=== PATIENT | female | born 1995 | race Caucasian/White ===

== ENCOUNTER 2016-09-11 20:32 | Emergency (ER) | payer SELFPAY ==
--- NOTE | ~2016-09-11 | ER ---
PATIENT'S NAME: KAEL [facility] AGE: 21 Y [address] ROOM: [place] [address] LOCATION: [facility] ADMIT DATE: 09/11/2016 ER/Outpatient Report DISCHARGE DATE: 09/11/2016 FAMILY PHYSICIAN: PHYSICIAN, NO ATTENDING PHYSICIAN: Paul Jennings Admission date and time documented on the medical record. I saw the patient at 2045 hours. CHIEF COMPLAINT: Shortness of breath, exacerbation of asthma. HISTORY OF PRESENT ILLNESS: This patient is a 21-year-old female, who has been ill for about 10 days with respiratory infection and problems with her asthma. Worsened today. She has taken her albuterol inhaler every hour. She has a dry, nonproductive cough, short of breath, wheezing, tight chest. No fever, chills, or sweats. No headache, eyes, ears, nose, throat, neck, or spine pain. No fall or trauma. No lightheadedness, dizziness, syncope, or near syncope. No abdominal pain, nausea, vomiting, diarrhea. No urinary frequency, urgency, or dysuria. No joint or muscle swelling, redness, or pain. No skin eruptions or rash. No history of neuro changes, psych issues, or endocrine problems. HOME MEDICATIONS: See attached medication list. ALLERGIES: NICKEL. SOCIAL HISTORY: The patient does smoke cigarettes, nondrinker. SIGNIFICANT PAST MEDICAL HISTORY: Asthma, tobacco abuse. OPERATIONS: Vaginal surgery. ROS: All systems reviewed by me are negative with exception of those discussed in the history of present illness. PHYSICAL EXAMINATION: VITAL SIGNS: Temperature 98.2, tympanic; pulse 131, regular; respirations 20; blood pressure 131/101; O2 saturation on 1 L of oxygen per nasal cannula is PATIENT'S NAME: SCRUGGS [facility] AGE: 21 Y [address] ROOM: [place] [address] LOCATION: [facility] ADMIT DATE: 09/11/2016 ER/Outpatient Report DISCHARGE DATE: 09/11/2016 FAMILY PHYSICIAN: PHYSICIAN, NO ATTENDING PHYSICIAN: Paul Jennings 95%. HEENT: Head: Normocephalic. Eyes: Clear. Ears: Clear TMs bilaterally. Nose and Throat: Clear. NECK: Negative. LUNGS: Decreased breath sounds diffusely. Expiratory wheezing that cleared with albuterol and DuoNeb respiratory nebulizer treatments. HEART: Tachy, regular. Pulses are palpable. The patient is mildly tachypneic. ABDOMEN: Soft, nontender. Good bowel tones. No organomegaly or abnormal masses palpable. No CVA tenderness. EXTREMITIES: Without peripheral edema, cyanosis, or deformity. NEUROVASCULAR: Intact. SKIN: Clear. IMAGING DATA: Chest x-ray showed no acute infiltrate. We will review x-ray with the radiologist. LABORATORY DATA: CMS was normal except for a slight low potassium of 3.4. CRP was less than 0.29. Procalcitonin was less than 0.05. White count was 14,300, 62 segs, 25 lymphs, 6 monos, 7 eos, 1 baso. Hemoglobin is 13.4, hematocrit is 41.0, platelet count is 266,000. Sedimentation rate was 9. Lactate was 1.4. I did give the patient Solu-Medrol 250 mg IV in the emergency room, Rocephin 1 g IV in the emergency room, epinephrine 0.3 IM in the emergency department. IMPRESSION: Exacerbation of asthma, bronchitis. PLAN: The patient was dismissed home. Observation. Activity as tolerated. Fluids, diet as tolerated. Z-Luke take as directed, prednisone 20 mg b.i.d. for a week, albuterol oral inhaler with AeroChamber 2 puffs 30 seconds apart 4 times a day and p.r.n. Follow up with personal physician in 4 or 5 days or sooner if needed. Discussion ensued with the patient concerning my findings and recommendations, she understands. PAUL JENNINGS MD SDS/modl PATIENT'S NAME: AGUSTÍN SCRUGGS [facility] AGE: 21 Y [address] ROOM: [place] [address] LOCATION: [facility] ADMIT DATE: 09/11/2016 ER/Outpatient Report DISCHARGE DATE: 09/11/2016 FAMILY PHYSICIAN: PHYSICIAN, NO ATTENDING PHYSICIAN: Paul Jennings /[id number] d: 09/12/16 0035 t: 09/12/16 1826, OUTPATIENT REPORT
[2016-09-11 21:18] LABS: BASOPHIL # 0.1 K/uL (0.0-0.2); BASOPHIL % 0.6 %; EOSINOPHIL % 6.9 %; HEMOGLOBIN 13.4 g/dL (11.0-15.0); IMMATURE GRANULOCYTE % 0.3 %; LYMPHOCYTE # 3.6 K/uL (0.8-4.0); MCH 28.8 pg (27.0-34.0); MCHC 32.7 gm/dL (32.0-36.5); MCV 88.2 fl (83.0-98.0); MONOCYTE # 0.8 K/uL (0.0-1.0); MONOCYTE % 5.5 %; NEUTROPHIL # (ANC) 8.8 K/uL (1.8-7.8); NEUTROPHIL % 61.7 %; NRBC % 0 /100WBC (0-0.00); PLATELET COUNT 266 K/uL (150-450); RBC 4.65 M/uL (3.50-5.00); RDW-CV 12.5 % (11.9-14.6); WBC 14.3 K/uL (4.0-11.0)
[2016-09-11 21:38] LABS: ALBUMIN 3.9 gm/dL (3.5-5.0); ALK PHOS 88 IU/L (33-138); ALT 18 IU/L (12-78); ANION GAP 12.4 (10.0-19.0); AST 16 IU/L (10-40); BLOOD UREA NITROGEN 8 mg/dL (6-24); CALCIUM 8.6 mg/dL (8.5-10.5); CHLORIDE 107 mMol/L (96-110); CO2 23 mMol/L (22-32); CREATININE 0.7 mg/dL (0.5-1.1); ESTIMATED GFR (MDRD EQUATION) > 60; POTASSIUM 3.4 mMol/L (3.7-5.1); SODIUM 139 mMol/L (135-145); TOTAL BILIRUBIN 0.5 mg/dL (0.0-1.5); TOTAL PROTEIN 7.1 g/dL (6.0-8.4)
== END 2016-09-11 22:13 | disposition disaster alternative care site (69) ==
LOC: GMED 20:32
PROVIDERS: Emergency Medicine
DX: J45.901 Unspecified asthma with (acute) exacerbation (principal); F17.210 Nicotine dependence, cigarettes, uncomplicated
CPT/HCPCS: J0171; J0696; J2930

== ENCOUNTER 2016-09-26 17:04 | Emergency (ER) | payer SELFPAY ==
--- NOTE | ~2016-09-26 | ER ---
PATIENT'S NAME: AGUSTÍN SCRUGGS [facility] AGE: 21 Y [address] ROOM: [place] [address] LOCATION: [facility] ADMIT DATE: 09/26/2016 ER/Outpatient Report DISCHARGE DATE: 09/26/2016 FAMILY PHYSICIAN: SHABBIR GREENFIELD ATTENDING PHYSICIAN: Sage Rubio CHIEF COMPLAINT: Rash. HISTORY OF PRESENT ILLNESS: The patient states that over the last few days, she has noticed a rash on her low back. It started initially on or Monday. Since then, it has spread some. She has not noticed anything about the rashes concerning such as pain, electrical sensations, or difficulty with the itching. She noted today it itched a little bit. She does note that a friend had a similar rash that she thought was maybe a spider bite that she saw few days ago. Her significant other does have a similar rash that is very painful in his genitalia, but he did not accompany her today. She states they have had no direct sexual contact, but she did grasp his penis a few days ago to help him with urination for undetermined reasons. She is otherwise feeling okay. Denies any other symptoms. She states the rash is confined to her low back and it is not radiated anywhere else. PAST MEDICAL HISTORY: Documented on the record and reviewed by me. SOCIAL HISTORY: Documented on the record and reviewed by me. MEDICATIONS: Documented on the record and reviewed by me. ALLERGIES: DOCUMENTED ON THE RECORD AND REVIEWED BY ME. REVIEW OF SYSTEMS: All systems reviewed and negative except as noted in the HPI. PHYSICAL EXAMINATION: VITAL SIGNS: Blood pressure 123/76, pulse 92, respiratory rate is 16, temperature 98.6, and SpO2 is 95% on room air. GENERAL: An age appropriate female, sitting upright on the exam chair, in no acute pain or distress. NEUROLOGIC: Awake. Alert. No obvious abnormalities. No asymmetry on exam. HEENT: Normal to inspection. Normocephalic and atraumatic. Eyes are PERRL. PATIENT'S NAME: AGUSTÍN SCRUGGS [facility] AGE: 21 Y [address] ROOM: [place] [address] LOCATION: [facility] ADMIT DATE: 09/26/2016 ER/Outpatient Report DISCHARGE DATE: 09/26/2016 FAMILY PHYSICIAN: PHYSICIAN, NO ATTENDING PHYSICIAN: Sage Rubio Oropharynx is clear and moist. NECK: Supple. Trachea is midline. CHEST: Heart rate is regular. Even unlabored respirations. ABDOMEN: Benign to inspection. BACK: Nontender to palpation throughout. There is a rash on the left iliac crest region. EXTREMITIES: Warm and well perfused. No obvious abnormalities. SKIN: Warm, dry, and intact except for an area on the left paraspinal region at the iliac crest. There are 3 distinct areas, each measuring approximately 1.5 cm in diameter with what appears to be a vesicular rash in various levels of healing with some crusting most medial and clear vesicles on erythematous base more laterally. No significant purulence appreciated. No honey crusting present. LABORATORY DATA AND X-RAYS: None. IMPRESSION: 1. Rash. 2. Herpes simplex virus versus impetigo. EMERGENCY DEPARTMENT COURSE: The patient was seen and evaluated as above. She had been using some topical antibiotics, this with no improvement. Based on the current presentation along with the apparent spread to a significant other, I am concerned about HSV or other herpes family virus. She will be started on acyclovir and Keflex. HSV swab is pending, we will contact the patient with results if positive. SAGE RUBIO MD JH/pareshl /[id number] d: 09/27/1632 t: 10/04/16 2153, OUTPATIENT REPORT
== END 2016-09-26 18:10 | disposition disaster alternative care site (69) ==
LOC: GMED 17:04
DX: R21 Rash and other nonspecific skin eruption (principal)

== ENCOUNTER 2016-10-01 18:29 | Emergency (ER) | payer SELFPAY ==
--- NOTE | ~2016-10-01 | ER ---
PATIENT'S NAME: AGUSTÍN SCRUGGS [facility] AGE: 21 Y [address] ROOM: [place] [address] LOCATION: ED ADMIT DATE: 10/01/2016 ER/Outpatient Report DISCHARGE DATE: 10/01/2016 FAMILY PHYSICIAN: PHYSICIAN, NO ATTENDING PHYSICIAN: Kailyn Carrasco Time of Patient's Arrival: 1829 hours. Time of Patient's Evaluation: 1840 hours. CHIEF COMPLAINT: Shortness of breath. HISTORY OF PRESENT ILLNESS: This is a 21-year-old female who presents to the ER, who states that she has been having difficulty with breathing over the last couple of days. She states she does have a history of asthma and she was diagnosed with bronchitis about a month and a half ago she thinks. She was prescribed some medication which did improve her symptoms at that time, and in the last couple of days, she has been getting worse. She states her mother did give her some medication for [place] to help with her symptoms, she thinks it was like a [place] version of antibiotic. She states she does not believe she has been running any fever. She has been using her inhalers with minimal relief of her symptoms. She denies any other problems at this time. The patient states that her shortness of breath makes her chest feel tight and makes it feel like she has pressure on her chest as well. Does not make her feel nauseated. She feels like her heart is racing, but she thinks it is probably due to the albuterol that she has been taking. ALLERGIES: NO KNOWN ALLERGIES. MEDICATIONS: Please see medication list in nurse's notes. PAST MEDICAL HISTORY: Asthma and bronchitis. PAST SURGERIES: Tonsillectomy and arm surgery. SOCIAL HISTORY: She smokes a 4th pack a day for the last 4 years. She does smoke marijuana. REVIEW OF SYSTEMS: A 10-point review of systems completed and was negative with the exception of PATIENT'S NAME: AGUSTÍN SCRUGGS [facility] AGE: 21 Y [address] ROOM: [place] [address] LOCATION: ED ADMIT DATE: 10/01/2016 ER/Outpatient Report DISCHARGE DATE: 10/01/2016 FAMILY PHYSICIAN: PHYSICIAN, NO ATTENDING PHYSICIAN: Kailyn Carrasco those discussed in the HPI. PHYSICAL EXAMINATION: VITAL SIGNS: Height 5 feet 3 inches stated, weight 56.1 kg taken, blood pressure is 118/88, pulse 145, respirations 32, and temperature 98.6 degrees tympanically, and saturations 96% on room air. Carmelo Coma Score is 15. GENERAL: Alert, calm, well-developed, 21-year-old, in moderate distress. HEENT: Head: Normocephalic. Eyes: Pupils are equal and reactive to light. Ears: TMs display good light reflexes bilaterally. Auditory canals clear. She does display moist mucous membranes. LUNGS: She has "tight wheezing" throughout. HEART: Tachycardia. Normal rhythm. No murmurs. ABDOMEN: Soft, it is nontender. She has good bowel sounds throughout. No masses are palpated. EXTREMITIES: She has full range of motion of all limbs. SKIN: Warm, dry, and intact. LABORATORY DATA: CBC: White count is 14.4, hemoglobin is 13.3, platelets 257, and ANC is 9.1. INR is 1.08. CMS: Potassium is 3.2, glucose is 110, otherwise unremarkable. Magnesium is 2.1. CPK is 133, CK-MB is 1.8, and troponin I is less than 0.040. EKG shows sinus tachycardia. Chest x-ray was negative for any infiltrate. IMPRESSION: Exacerbation of asthma, bronchitis. ASSESSMENT AND PLAN: We did start an IV and gave her 125 mg of Solu-Medrol. We also gave her DuoNeb with stat treatments of 2 albuterol treatments and Xopenex treatment as well. This did improve the aeration. The patient's breathing did improve and she states that she is feeling much better. We did monitor her for quite some time. We will dismiss her to home with prescriptions for Z-Luke to use as directed along with oral prednisone to use as directed. She needs to continue her albuterol inhaler every 4 hours. I did give her information [facility] this next week. The patient should return to the emergency room if she worsens. The patient understands and agrees with care. RADHA AMADO PA-C FOR MD TYRONE DEL RIO/aakash PATIENT'S NAME: AGUSTÍN SCRUGGS [facility] AGE: 21 Y [address] ROOM: [place] [address] LOCATION: [facility] ADMIT DATE: 10/01/2016 ER/Outpatient Report DISCHARGE DATE: 10/01/2016 FAMILY PHYSICIAN: SHABBIR GREENFIELD ATTENDING PHYSICIAN: Kailyn Carrasco /[id number] d: 10/02/16 0030 t: 10/10/16 1838, OUTPATIENT REPORT
[2016-10-01 19:01] LABS: BASOPHIL # 0.1 K/uL (0.0-0.2); BASOPHIL % 0.6 %; EOSINOPHIL % 6.7 %; HEMATOCRIT 39.4 % (33.0-46.0); HEMOGLOBIN 13.3 g/dL (11.0-15.0); IMMATURE GRANULOCYTE # 0.1 K/uL (0.0-0.3); IMMATURE GRANULOCYTE % 0.3 %; LYMPHOCYTE # 3.4 K/uL (0.8-4.0); LYMPHOCYTE % 23.7 %; MCH 29.5 pg (27.0-34.0); MCHC 33.8 gm/dL (32.0-36.5); MCV 87.4 fl (83.0-98.0); MONOCYTE # 0.8 K/uL (0.0-1.0); MONOCYTE % 5.5 %; MPV 9.2 fl (9.4-12.4); NEUTROPHIL # (ANC) 9.1 K/uL (1.8-7.8); NEUTROPHIL % 63.2 %; NRBC % 0 /100WBC (0-0.00); PLATELET COUNT 257 K/uL (150-450); RBC 4.51 M/uL (3.50-5.00); RDW-CV 12.6 % (11.9-14.6); WBC 14.4 K/uL (4.0-11.0)
[2016-10-01 19:09] LABS: INR - (THERAPEUTIC) 1.08 (0.92-1.07); PROTIME 11.3 SECONDS (9.8-11.4); PTT 29 SECONDS (25-32)
[2016-10-01 19:20] LABS: ALBUMIN 3.8 gm/dL (3.5-5.0); ALK PHOS 82 IU/L (33-138); ALT 23 IU/L (12-78); ANION GAP 13.2 (10.0-19.0); AST 16 IU/L (10-40); BLOOD UREA NITROGEN 7 mg/dL (6-24); CALCIUM 8.3 mg/dL (8.5-10.5); CHLORIDE 113 mMol/L (96-110); CO2 18 mMol/L (22-32); CPK 133 IU/L (21-215); CREATININE 0.7 mg/dL (0.5-1.1); ESTIMATED GFR (MDRD EQUATION) > 60; MAGNESIUM 2.1 mg/dL (1.8-2.6); POTASSIUM 3.2 mMol/L (3.7-5.1); SODIUM 141 mMol/L (135-145); TOTAL PROTEIN 7.1 g/dL (6.0-8.4)
== END 2016-10-01 20:22 | disposition disaster alternative care site (69) ==
LOC: GMED 18:29
PROVIDERS: Family Medicine
DX: J45.901 Unspecified asthma with (acute) exacerbation (principal); F17.210 Nicotine dependence, cigarettes, uncomplicated; Z90.89 Acquired absence of other organs
CPT/HCPCS: J2930; J7612

== ENCOUNTER 2016-10-22 11:59 | Emergency (ER) | payer SELFPAY ==
--- NOTE | ~2016-10-22 | ER ---
PATIENT'S NAME: AGUSTÍN SCRUGGS [facility] AGE: 21 Y [address] ROOM: [place] [address] LOCATION: [facility] ADMIT DATE: 10/22/2016 ER/Outpatient Report DISCHARGE DATE: 10/22/2016 FAMILY PHYSICIAN: PHYSICIAN, NO ATTENDING PHYSICIAN: Sage Rubio CHIEF COMPLAINT: Difficulty breathing. HISTORY OF PRESENT ILLNESS: The patient states she has a history of asthma and has taken multiple breathing treatments today with no improvement. She does occasionally have to come to the ER for treatments, but she has never been hospitalized or intubated. She denies any fevers or chills. She does have a cough which she gets with her asthma exacerbations. This has been going on since yesterday. PAST MEDICAL HISTORY: Documented in the record and reviewed by me. PAST SURGICAL HISTORY: Documented in the record and reviewed by me. MEDICATIONS: Documented in the record and reviewed by me. ALLERGIES: DOCUMENTED IN THE RECORD AND REVIEWED BY ME. REVIEW OF SYSTEMS: All systems were reviewed and negative except as noted in the HPI. PHYSICAL EXAMINATION: VITAL SIGNS: Blood pressure is 92/60, pulse 115, respiratory rate is 19, temperature 99.1, and SpO2 is 94% on room air. GENERAL: Age appropriate female, sitting upright on the exam table, in no obvious pain, and in mild respiratory distress with intermittent cough, but able to speak in full sentences. NEUROLOGIC: The patient is awake and alert. GCS is 15. No focal deficits. No asymmetry. HEENT: Normocephalic and atraumatic. Eyes are PERRL. Oropharynx is clear. No erythema or exudates. NECK: Supple. Trachea is midline. CHEST: Heart is tachycardic with no murmurs. LUNGS: With markedly diminished air entry bilaterally with acute expiratory wheezes, most prominent at the bases. No crackles appreciated. PATIENT'S NAME: AGUSTÍN SCRUGGS [facility] AGE: 21 Y [address] ROOM: [place] [address] LOCATION: [facility] ADMIT DATE: 10/22/2016 ER/Outpatient Report DISCHARGE DATE: 10/22/2016 FAMILY PHYSICIAN: PHYSICIAN, NO ATTENDING PHYSICIAN: Sage Rubio BACK: Normal to inspection and palpation. ABDOMEN: Benign. EXTREMITIES: Warm and well perfused. Brisk capillary refill. SKIN: Warm, dry, and intact. LABORATORY DATA AND IMAGING STUDIES: Chest x-ray is unremarkable per my read. No evidence of pneumonia. IMPRESSION: Acute asthma exacerbation, severe without hypoxia. EMERGENCY DEPARTMENT COURSE: The patient was seen and evaluated as above. She was given a DuoNeb and 2 Xopenex. She did not have significant improvement at that time. She was ultimately given repeat set of DuoNeb in addition to magnesium. She had marked improvement at that time. Her pulmonary exam, came back to normal. She was given prednisone here in the emergency department. She will be given prescriptions for albuterol inhaler and nebulizer. She does need to establish care. She will also take her prednisone which will be prescribed for the next 4 days. She should return immediately if any other concerns or questions. MD DAIJA ANDRADE/aakash /[id number] d: 10/23/16 1446 t: 11/01/16 1741, OUTPATIENT REPORT
== END 2016-10-22 15:47 | disposition disaster alternative care site (69) ==
LOC: GMED 11:59
DX: J45.901 Unspecified asthma with (acute) exacerbation (principal); Z87.891 Personal history of nicotine dependence; Z79.899 Other long term (current) drug therapy
CPT/HCPCS: J3475; J7512; J7612